=== PATIENT | male | born 1960 | race Caucasian/White ===

== ENCOUNTER → 2021-11-30 | Outpatient (CLI) | payer BC ==
[2021-11-30 08:09] LABS: BASOPHILS % (AUTO) 0 % (0-10); HEMOGLOBIN 16.6 g/dL (13.3-17.7); MEAN PLATELET VOLUME 9.8 fL (9.0-12.2)
[2021-11-30 08:11] LABS: EOSINOPHILS % (AUTO) 0 % (0-10); HEMATOCRIT 49 % (40-54); LYMPHOCYTES # (AUTO) 2.7 10^3/uL (1.0-4.0); LYMPHOCYTES % (AUTO) 58 % (12-44); MEAN CORPUSCULAR HEMOGLOBIN 32 pg (25-34); MEAN CORPUSCULAR HGB CONC 34 g/dL (32-36); MEAN CORPUSCULAR VOLUME 94 fL (80-99); MONOCYTES # (AUTO) 0.6 10^3/uL (0.0-1.0); MONOCYTES % (AUTO) 13 % (0-12); NEUTROPHILS # (AUTO) 1.3 10^3/uL (1.8-7.8); NEUTROPHILS % (AUTO) 28 % (42-75); PLATELET COUNT 137 10^3/uL (130-400); WHITE BLOOD COUNT 4.6 10^3/uL (4.3-11.0)
[2021-11-30 08:29] LABS: BILIRUBIN,TOTAL 0.7 MG/DL (0.1-1.0); CALCIUM 8.6 MG/DL (8.5-10.1); CREATININE SERUM 1.23 MG/DL (0.60-1.30); POTASSIUM 4.1 MMOL/L (3.6-5.0); TOTAL PROTEIN 6.8 GM/DL (6.4-8.2)
[2021-11-30 08:49] LABS: TSH (THYROID ANALYZER) 1.41 UIU/ML (0.35-4.94)
== END ==
LOC: LAB 07:36 → EDSEX 07:36
PROVIDERS: ATTEND Surgery
DX: E78.00 Pure hypercholesterolemia, unspecified (principal); R53.83 Other fatigue
CPT/HCPCS: 80053; 80061; 84443; 85025; G0103; 36415; 84153

== ENCOUNTER 2022-05-22 22:06 | Emergency (ER) | payer BC ==
[~2022-05-22] VITALS: Ht 180 cm; Wt 104.3 kg
--- NOTE | 2022-05-22 23:58 | ED Upper Extremity ---
General Chief Complaint: Upper Extremity Stated Complaint: SLIPPED/RIGHT ARM INJURY Nursing Triage Note: Pt ambulates to FT[facility], reports leaving [employer], slipping down a wet, snowy hill, put arm out to catch himself and felt pain and heard crackles in right upper arm/tricep area. Pt took 1 XS Tylenol with mild relief, reports pain is intermittent now, right hand is now tingling and numb. Source: patient Exam Limitations: no limitations History of Present Illness Date Seen by Provider: May 22, 2022 Time Seen by Provider: 23:05 Initial Comments This 61-year-old gentleman presents to the emergency room with injury to the right arm after slipping and falling on a grassy hill at the [employer] game. He came down on his right upper extremity but he does not know the exact mechanism of injury. Pain seems to be focused on the posterior distal upper upper arm and in the elbow. He denies any injury to the shoulder. He drove home from [place] and presented to the emergency room. He has taken only Tylenol. No alcohol was involved. He denies any other injuries. Allergies and Home Medications Allergies Coded Allergies: No Known Drug Allergies (Unverified , 05/22/22) Patient Home Medication List Home Medication List Reviewed: Yes Hydrocodone/Acetaminophen (Hydrocodone-Acetamin 5-325 mg) 5 Mg-325 Mg Tablet, 1- 2 TAB PO Q4H PRN for PAIN-MODERATE (5-7) Prescribed by: MYRNA SHETH on 05/23/22 0036 Review of Systems Constitutional: no symptoms reported EENTM: no symptoms reported Respiratory: no symptoms reported Cardiovascular: no symptoms reported Gastrointestinal: no symptoms reported Genitourinary: no symptoms reported Musculoskeletal: see HPI Skin: no symptoms reported Psychiatric/Neurological: No Symptoms Reported Past Amampyt-Pxxqvf-Leoekv Hx Patient Social History Tobacco Use?: No Use of E-Cig and/or Vaping dev: No Substance use?: No Alcohol Use?: No Pt feels they are or have been: No Immunizations Up To Date Influenza Vaccine Up-to-Date: Yes; Up-to-Date First/Initial COVID19 Vaccinat: 2020 Second COVID19 Vaccination Luigi: 2020 Third COVID19 Vaccination Date: 2021 COVID19 Vaccine Stamp Pad Finisher: Qinging Weekly Flower Delivery Past Medical History Surgeries: Yes (Dental procedures) Abdominal (Hiatal hernia), Orthopedic (Right hand) Respiratory: No Cardiac: Yes High Cholesterol Neurological: No Reproductive Disorders: Yes (Low testosterone) Genitourinary: No Gastrointestinal: No Musculoskeletal: No Endocrine: No HEENT: No Cancer: No Psychosocial: No Physical Exam Vital Signs Vital Signs - First Documented 05/22/22 22:18 Temp 35.8 Pulse 66 Resp 16 B/P (MAP) 157/89 (111) Pulse Ox 98 O2 Delivery Room Air Capillary Refill : Height, Weight, BMI Height: '" Weight: lbs. oz. kg; 32.00 BMI Method: General Appearance: WD/WN, mild distress HEENT: normal ENT inspection Neck: normal inspection Cardiovascular: regular rate, rhythm, no murmur Respiratory: lungs clear, normal breath sounds, no respiratory distress Shoulder: normal inspection, non-tender, no evidence of injury Elbow/Forearm: normal inspection, Right, bone tenderness (Tenderness over the lateral and posterior elbow. Area of fullness posterior and superior to the elbow), limited ROM (Flexion at the elbow somewhat limited by pain. Rotation not limited.) Wrist: Yes normal inspection, Yes non-tender, Yes no evidence of injury, Yes normal ROM Hand: normal inspection, non-tender, no evidence of injury, normal ROM, Right Neurologic/Tendon: normal sensation, normal motor functions, normal tendon functions Neurologic/Psychiatric: no motor/sensory deficits, alert, normal mood/affect, oriented x 3 Skin: normal color, warm/dry Progress/Results/Core Measures Results/Orders My Orders Orders - MYRNA ADLER MD Humerus, Right, 2 Views (05/22/22 23:08) Elbow, Right, 3 Views (05/23/22 00:01) Rx-Hydrocodone/Apap 5-325 Mg (Rx-Vicodin (05/23/22 00:45) Medications Given in ED Vital Signs/I&O Blood Pressure Mean: 111 Progress Progress Note #1: Progress Note X-rays of the right humerus were obtained. No acute injuries were identified but there did appear to be an abnormal joint space at the elbow. Humerus views were not adequate to evaluate the elbow. Dedicated elbow films were then obtained. There is concern for possible compression at the radial head. Radiologist's interpretation of x-rays was not available. Sugar-tong splint was applied. Patient was given a take-home pack of hydrocodone and advised to follow-up with an orthopedist soon as possible. See discharge instructions for further discussion. Progress Note #2: Progress Note May 24, 2022 - Radiology reports have now been reviewed. Radiologist's interpretation was negative for fracture or dislocation. I have contacted Dr. Bradley, in-house radiologist at [facility]. He provided a third opinion on the elbow films. He is in agreement with me that there is suspicion for a fracture or compression at the neck of the radial head. He also noted soft tissue swelling posterior to the elbow. I have contacted the patient and share these findings with him. He was advised to stay in the splint until he follows up with Dr. [place] to provide more clarity on his injuries. He called Dr. [place]'s office this morning to arrange follow-up. Diagnostic Imaging Diagonstic Imaging: Xray Plain Films/CT/US/NM/MRI: elbow, other (Humerus) Comments X-rays of the right humerus show no acute abnormalities. There did seem to be an abnormally large intra-articular gap at the elbow but these views were inadequate. Dedicated images of the elbow were obtained. There is questionable compression of the radial head. No other acute bony injury or dislocation was appreciated. Radiologist's report not yet available. Departure Impression Primary Impression: Radial head fracture, closed Qualified Codes: S52.124A - Nondisplaced fracture of head of right radius, initial encounter for closed fracture Additional Impressions: Soft tissue injury of right elbow Qualified Codes: S59.901A - Unspecified injury of right elbow, initial encounter Fall on same level Qualified Codes: W18.30XA - Fall on same level, unspecified, initial encounter Disposition: 01 HOME, SELF-CARE Condition: Improved Departure-Patient Inst. Decision time for Depature: 02:00 Referrals: LARA TURNER MD (PCP/Family) Primary Care Physician STEVO ZHENG MD, MICHAEL P MD Patient Instructions: Elbow Fracture, Adult ED, Crowder Splints (DC) Add. Discharge Instructions: Keep your arm in the sling and splint. Keep the splint clean and dry. You may use hydrocodone as prescribed for pain management. Avoid using NSAIDs such as ibuprofen or naproxen as they may delay bone healing. Hydrocodone may cause drowsiness so use with caution. It is not recommended that you drive, operate machinery, or make important decisions while on hydro codone. Hydrocodone may also cause constipation, so you may wish to use a stool softener such as Colace while taking hydrocodone. Please follow-up with an orthopedic provider soon as possible. Dr. Zheng and Dr. [place] are local orthopedic providers, and their contact information is listed below. Return to the emergency room if you have worsening symptoms or need any adjustments to your splint. Please contact the emergency room after 9:00 in the morning for the official radiologist's interpretation of your x-rays. All discharge instructions reviewed with patient and/or family. Voiced understanding. Scripts Hydrocodone/Acetaminophen (Hydrocodone-Acetamin 5-325 mg) 5 Mg-325 Mg Tablet 1-2 TAB PO Q4H PRN for PAIN-MODERATE (5-7), #20 TAB Prov: MYRNA ADLER MD 05/23/22 Copy Copies To 1: STEPHANIA C[place]BE[place] MD, JOSHUA T MD May 22, 2022 23:58
[2022-05-23] MEDS ORDERED: ACHD5005 PO (00:35)
[2022-05-23 02:27] VITALS: BP 157/89
--- NOTE | 2022-05-23 07:51 | Diagnostic Imaging Report ---
EXAMINATION: Right humerus 2 views HISTORY: Arm pain COMPARISON: None available. FINDINGS: No fracture is seen in the right humerus. No dislocation. Acromioclavicular osteoarthritis is noted. IMPRESSION: 1. No fracture in the right humerus. Dictated by: Dictated on workstation # [id number]
--- NOTE | 2022-05-23 07:51 | Diagnostic Imaging Report ---
EXAMINATION: Right elbow 3 or more views HISTORY: Elbow pain COMPARISON: None available. FINDINGS: There is mild elbow joint osteoarthritis. No fracture. No effusion. Alignment is normal. IMPRESSION: 1. No fracture in the right elbow. Dictated by: Dictated on workstation # [id number]
== END 2022-05-23 02:27 | disposition home or self-care (01) ==
LOC: EDUNIT# 22:06 → ER 22:09
DX: S52.131A Displaced fracture of neck of right radius, initial encounter for closed fracture (principal); W01.0XXA Fall on same level from slipping, tripping and stumbling without subsequent striking against object, initial encounter; Y93.61 Activity, american tackle football; Y92.828 Other wilderness area as the place of occurrence of the external cause
CPT/HCPCS: 29125; 73060; 73080

== ENCOUNTER → 2022-05-31 | Outpatient (CLI) | payer BC ==
[~2022-05-31] MED LIST: ACHD5005 PO
--- NOTE | 2022-05-31 10:26 | Diagnostic Imaging Report ---
PROCEDURE: MRI right joint upper extremity without contrast. TECHNIQUE: Multiplanar, multisequence non contrast-enhanced MRI of the right upper extremity was accomplished. INDICATION: Right elbow pain, laceration COMPARISON: Radiographs from 05/22/2022 FINDINGS: No acute fracture is seen in the right elbow. Alignment appears normal. There is a small amount of joint fluid without a cody effusion seen. The ulnar collateral ligament appears intact. The radial collateral ligament complex appears intact. The origins of the common flexor and common extensor tendons appear intact. The distal biceps and brachioradialis tendons are intact. The triceps tendon demonstrates a near complete tear, particularly of the posterior and lateral fibers. There is retraction of the fibers proximally. There is surrounding subcutaneous edema posterior to the elbow. No muscular atrophy is seen. No deep soft tissue masses or fluid collections are seen. The ulnar nerve appears normal in course and signal. The median nerve appears normal. IMPRESSION: 1. High-grade, near-complete tear of the distal triceps tendon. 2. Posterior subcutaneous edema. No drainable fluid collection is appreciated. Dictated by: Dictated on workstation # [id number]
== END ==
LOC: RAD 07:45
PROVIDERS: ATTEND Nurse Practitioner
DX: S46.811A Strain of other muscles, fascia and tendons at shoulder and upper arm level, right arm, initial encounter (principal); R60.9 Edema, unspecified; S52.124A Nondisplaced fracture of head of right radius, initial encounter for closed fracture; M70.21 Olecranon bursitis, right elbow
CPT/HCPCS: 73221

== ENCOUNTER 2022-12-21 05:30 | Outpatient (CLI) | payer BC ==
[~2022-12-21] VITALS: Ht 180.3 cm; Wt 100.9 kg
[2022-12-21] MEDS ORDERED: MV-M-9 PO (12:57)
== END 2022-12-21 13:31 | disposition home or self-care (01) ==
LOC: PREOP 05:30
PROVIDERS: ATTEND Surgery
DX: Z01.818 Encounter for other preprocedural examination (principal)

== ENCOUNTER 2022-12-23 10:42 | Day surgery (SDC) | payer BC ==
--- NOTE | 2022-12-21 09:05 | HISTORY AND PHYSICAL ---
DATE OF ADMISSION: Will be 12/22/2022. ATTENDING PRIMARY CARE PHYSICIAN: Yobani Leggett DO HISTORY OF PRESENT ILLNESS: The patient is a 62-year-old male known to us. He moved to this area from [facility]. He is in need of a screening colonoscopy. He reports that his last one was done in [place] 10 years ago and believes this to be normal. He does report that he has had an issue with an anal fissure as well as a fistula; however, this was significant amount of time ago and has not had any issues since that time. He states that he otherwise does not report any major issues with diarrhea, nor constipation as well as no red blood per rectum, nor any dark tarry stools. He also does not report any family history of colon cancer. He reports lately he has had recurrence of pain, swelling and mild drainage around the perianal region. This has been reoccurring for the past several weeks. PAST MEDICAL HISTORY: History of nephrolithiasis, hypercholesterolemia, gastroesophageal reflux disease, history of anal fissure, PTSD, testicular hypofunction. PAST SURGICAL HISTORY: ORIF right second metatarsal, hiatal hernia repair, repair of the fissure and fistula, right elbow extensor tendon repair. ALLERGIES: No known drug allergies. MEDICATIONS: Testosterone intramuscular weekly, atorvastatin 20 mg daily. SOCIAL HISTORY: Negative smoke, negative alcohol. FAMILY HISTORY: Noncontributory. VITAL SIGNS: Blood pressure 130/80, current weight 230 pounds and a body mass index of 33. REVIEW OF SYSTEMS: Well-nourished male in no acute distress. He is not experiencing any shortness of breath or difficulty breathing. No chest pain, palpitations, diaphoresis. No nausea, vomiting, no diarrhea, constipation. No red blood per rectum, no dark tarry stools. No fever, chills, no recent inadvertent weight loss. All other review of systems negative. PHYSICAL EXAMINATION: CHEST: Clear. Good breath sounds bilaterally. HEART: Regular. No murmurs. EXTREMITIES: No lower extremity edema. Negative Homans sign. HEENT: No scleral icterus. No cervical lymphadenopathy. ABDOMEN: Soft, nontender, nondistended. SKIN: Warm, dry. ASSESSMENT AND PLAN: A 62-year-old male in need of a screening colonoscopy. His last colonoscopy was 10 years ago and he believes this to be normal; however, has had issues with an anal fissure and fistulas in the past. We will proceed scheduling him for a screening colonoscopy. He has also had recurrence of redness, swelling, pain and drainage from the perianal region. We will proceed with scheduling him for an anal exam under anesthesia with possible fistulotomy, possible seton suture placement, possible incision and drainage, and screening colonoscopy. Job ID: [id number] DocumentID: [id number] Dictated Date: 12/17/2022 13:43:06 [employer] Supervisor Date: 12/17/2022 14:24:00 Dictated By: LARA TURNER MD [facility]
[~2022-12-23] VITALS: Ht 180 cm; Wt 100.9 kg
[2022-12-23] VITALS (9 sets, daily range): BP systolic 111–127; BP diastolic 71–81
[~2022-12-23 10:42] MED LIST changes: +MV-M-9 PO
[2022-12-23] MEDS ORDERED: ceFAZolin INJECTION 2,000 MG in NS (IVPB) 50 ML 50 ML IV ONE (11:00)
[2022-12-23] MEDS ORDERED: morphine INJ 10 MG/ML 1ML (SYR OR VIAL) IVP PRN (11:00)
[2022-12-23] MEDS ORDERED: HYDROcodone/ACETAMINOPHEN 5 MG/325 MG TABLET PO ONE (11:00)
[2022-12-23] MEDS ORDERED: LACTATED RINGERS 1,000 ML 1,000 ML IV PRN (11:00)
[2022-12-23] MEDS ORDERED: ONDANSETRON INJECTION 4 MG/2 ML (SDV) IVP PRN ×2 (11:00→14:00)
[2022-12-23] MEDS ORDERED: ACETAMINOPHEN 325 MG TABLET PO PRN (11:00)
--- NOTE | 2022-12-23 11:00 | Progress Note-Pre Operative ---
Pre-Operative Progress Note Date H&P Reviewed: Dec 23, 2022 Time H&P Reviewed: 11:00 History & Physical: H&P Reviewed, Patient Examed, No changes noted Pre-Operative Diagnosis: Anal fistula, Screening colonoscopy SHAYY MCKOY APRN Dec 23, 2022 11:00
[2022-12-23] MEDS ORDERED: HYDR-3820 PO (11:02)
--- NOTE | 2022-12-23 11:02 | Discharge Inst-Surgical ---
D/C Lap Instructions-KIDO Reconcile Patient Problems Problems Reviewed?: Yes New, Converted, or Re-Newed RX: RX on Chart Follow Up Appt in 2 weeks Activity as tolerated No driving for 24 hours No driving while on pain medications Incentive Spirometry use every 2 hours while awake Regular Diet Symptoms to Report: Fever over 101 degree F, Nausea/Vomiting Infection Signs and Symptoms to report: Increased redness, Foul odor of wound, Increased drainage Bathing instructions: May shower Operative Area Clean/Dry; Keep incision clean/dry If any problems/questions: Contact your physician or go to Emergency Room SHAYY MCKOY APRN Dec 23, 2022 11:02
[2022-12-23] MEDS ORDERED: LIDOCAINE 1% w/EPI 1:100,000 20 ML VIAL ONE (11:08)
[2022-12-23] MEDS ORDERED: BUPIVACAINE 0.5% 10 ML VIAL ONE ×2 (11:08→11:24)
[2022-12-23] MEDS ORDERED: proPOfol INJECTION 200 MG/20 ML VIAL IV ONE (12:10)
[2022-12-23] MEDS ORDERED: ONDANSETRON INJECTION 4 MG/2 ML (SDV) ONE (12:10)
[2022-12-23] MEDS ORDERED: fentaNYL INJECTION 100 MCG/2 ML VIAL ONE (12:10)
[2022-12-23] MEDS ORDERED: MIDAZOLAM INJ 2 MG/2 ML VIAL ONE (12:10)
[2022-12-23] MEDS ORDERED: LIDOCAINE PF 2% 5 ML VIAL ONE (12:10)
[2022-12-23] MEDS ORDERED: GLYCOPYRROLATE INJ 0.2 MG/ML 2 ML VIAL ONE (13:40)
[2022-12-23] MEDS ORDERED: SEVOFLURANE (ULTANE) 15 ML INHAL SOLN ONE (13:42)
[2022-12-23] MEDS ORDERED: HYDROmorphone INJECTION 2 MG/ML VIAL IV ONE (14:00)
[2022-12-23] MEDS ORDERED: morphine INJ 10 MG/ML 1ML (SYR OR VIAL) IVP ONE (14:00)
--- NOTE | 2022-12-23 14:08 | Progress Note-Post Operative ---
Post-Operative Progess Note Surgeon (s)/Soda Worker (s) Surgeon LARA TURNER MD Soda Worker: daniel shetty FINISHER [employer] Pre-Operative Diagnosis Anal fistula, Screening colonoscopy Post-Operative Diagnosis stage 3 rt lateral ext and int hemorrhoidal cushion. mild sigmoid diverticulosis. Procedure & Operative Findings Date of Procedure 12/23/22 Procedure Performed/Findings anal exam under anesthesia, pudendal nerve block, hemorrhoidectomy, colonoscopy. Anesthesia Type general LMA Estimated Blood Loss Estimated blood loss (mL): minimal Specimens/Packing Specimens Removed ext and int hemorrhoidal cushion LARA TURNER MD Dec 23, 2022 14:08
--- NOTE | 2022-12-23 14:28 | Anesthesia-General Post-Op ---
General Patient Condition Mental Status/LOC: Same as Preop Cardiovascular: Satisfactory Nausea/Vomiting: Absent Respiratory: Satisfactory Pain: Controlled Complications: Absent Post Op Complications Complications None Follow Up Care/Instructions Patient Instructions None needed. Anesthesia/Patient Condition Patient Condition Patient is doing well, no complaints, stable vital signs, no apparent adverse anesthesia problems. No complications reported per nursing. STEVO CRANE CRNA Dec 23, 2022 14:28
[2022-12-23] MEDS ORDERED: HYDROcodone/ACETAMINOPHEN 10/325 TABLET PO ONE ×2 (14:50→15:15)
--- NOTE | 2022-12-23 16:46 | OPERATIVE REPORT ---
DATE OF SERVICE: 12/23/2022 PREOPERATIVE DIAGNOSES: Perianal pain, swelling, drainage with previous history of anal fissure, screening colonoscopy. POSTOPERATIVE DIAGNOSES: No fissures or fistulas. Jadpm-ae-uavfxpr stage III right lateral external and internal hemorrhoidal cushion. Mild sigmoid diverticulosis. PROCEDURE PERFORMED: Formal hemorrhoid or anal exam under anesthesia, pudendal nerve block, formal hemorrhoidectomy, colonoscopy. SURGEON: Lara Pulido MD. RHEUMATOLOGIST: Stefan Biggs APRN. ANESTHESIA: General laryngeal mask airway. ESTIMATED BLOOD LOSS: Minimal. FINDINGS: No fissures or fistulas. Zvzgn-rj-outmqas stage III right lateral external and internal hemorrhoidal cushion. Mild sigmoid diverticulosis. DISPOSITION: The patient tolerated the procedure well. INDICATIONS: The patient is a 62-year-old male known to us. He moved to this region from [facility]. He is in need of a screening colonoscopy with his last one done in [place] 10 years ago and believes this to be normal. He has had issues with an anal fissure and underwent a fissurectomy; however, also had reported a possibility of a fistula. He reports that he has noticed recurrence of pain, swelling and mild drainage around the perianal region, which has been reoccurring for the past several weeks as well. He does not report any red blood per rectum nor any dark tarry stools. He also does not report any family history of colon cancer. DESCRIPTION OF PROCEDURE: The patient was brought to the operating room, laid supine on the table. After adequate IV pain and sedative medications and general laryngeal mask airway intubation, the patient was placed in lithotomy position and the perineum prepped and draped in standard surgical fashion. A pudendal nerve block was then performed using 0.5% Marcaine with epinephrine approximately 1 cm below bilateral ischial tuberosities. Once the anal sphincters relaxed, a self-retaining speculum was placed. There were no sinus tract or fistulas identified. No abscesses as well as no fissures. The only significant finding was a significant size [id number] right posterolateral stage III external and internal hemorrhoidal cushion in continuity. We then proceeded with formal Velásquez closed hemorrhoidectomy of the hemorrhoidal cushion. A 0 Vicryl suture was placed proximal to the internal hemorrhoidal cushion along the mucosa. The external and internal hemorrhoidal cushion was then excised en bloc using a Sonicision with visualization of good hemostasis. Using the previously placed suture, the mucosa and anoderm were reapproximated in a running fashion. Good hemostasis was observed. A digital rectal examination was performed. Prostate gland palpable and appeared normal. The endoscope was then intubated into the anus, rectum gently insufflated. The endoscope was then advanced to the valves of Patel of the rectum with no polyps or any neoplasms identified. Through the sigmoid colon, a mild sigmoid diverticulosis was identified. The endoscope was then advanced through the remainder of the descending, transverse and ascending colon to the cecum, which were normal. There were no polyps or any neoplasms identified throughout the colon or rectum. The endoscope was then slowly withdrawn while taking a second look and suctioning of residual air with no additional findings. A hemostatic plug made out of Gelfoam and Surgicel and also covered with Surgilube was then placed into the anal canal. The patient tolerated the procedure well. We will instruct him to keep the area as clean and dry as possible and try to do sitz baths at least 4 times a day, especially after every bowel movement. It was also explained that the semi-absorbable hemostatic plug will come out with his first bowel movement. We will also recommend a high-fiber diet with a fiber supplement, which should equal or exceed 30 grams daily to promote soft stools on a daily basis and prevent further irritation or trauma to the perianal region as well as for long-term to prevent further hemorrhoidal flareups as well as diverticulosis. Otherwise, a colonoscopy did not show any polyps and he does not have any family history of colon cancer and if he is asymptomatic, he does not need another colonoscopy from the 10 years. Job ID: [id number] DocumentID: [id number] Dictated Date: 12/23/2022 14:20:37 Plastic Maker Date: 12/23/2022 16:44:00 Dictated By: LARA PULIDO MD [facility]
== END 2022-12-23 15:22 | disposition home or self-care (01) ==
LOC: SDC 10:42
PROVIDERS: ATTEND Surgery
DX: K62.89 Other specified diseases of anus and rectum (principal); K64.2 Third degree hemorrhoids; K64.4 Residual hemorrhoidal skin tags; K60.3 Anal fistula; K57.30 Diverticulosis of large intestine without perforation or abscess without bleeding; Z28.310 Unvaccinated for COVID-19
CPT/HCPCS: 87081; 88304

== ENCOUNTER → 2023-02-16 | Outpatient (CLI) | payer BC ==
[~2023-02-16] MED LIST changes: +HYDR-3820 PO
--- NOTE | 2023-02-16 13:41 | Diagnostic Imaging Report ---
PROCEDURE: US Hepatic (Liver). TECHNIQUE: Multiple real-time grayscale images were obtained over the right upper quadrant in various projections. INDICATION: Elevated liver enzymes. COMPARISON: None. FINDINGS: The liver is normal in size, shape and echotexture. There are no focal lesions. Portal vein shows hepatopetal flow. No intra- or extra-hepatic biliary dilatation is present. The common bile duct is not dilated and measures 5 mm. Gallbladder is visualized and appears incompletely distended. Echogenic debris suggestive of gallbladder sludge and/or multiple small gallstones is noted. Echogenic spherical structure is also seen along the gqd-sspvlbw-tjnkbizjy portion of the gallbladder wall and measures 4 mm in diameter. This could be on the basis of gallbladder polyp. There is no gallbladder wall thickening or pericholecystic free fluid. The pancreas is not well visualized due to overlying bowel gas. There is no ascites. The right kidney measures approximately 11.1 cm in length and has a normal appearance. The visualized portions of the IVC and aorta are normal. IMPRESSION: 1. Gallbladder sludge and/or multiple small gallstones. 2. Probable gallbladder polyp. Given its small size, this could be followed with repeat sonogram in one year. 3. No sonographic evidence of acute cholecystitis. Dictated by: Dictated on workstation # [id number]
== END ==
LOC: RAD 08:44
PROVIDERS: ATTEND Family Medicine
DX: R74.01 Elevation of levels of liver transaminase levels (principal); E29.1 Testicular hypofunction; L57.0 Actinic keratosis; L81.9 Disorder of pigmentation, unspecified; H90.3 Sensorineural hearing loss, bilateral
CPT/HCPCS: 76705